=== PATIENT | male | born 1945 | race Caucasian/White ===

== ENCOUNTER 2018-05-28 06:00 | Day surgery (SDC) | payer OTHER ==
[~2018-05-28 06:00] MED LIST: ENALAPRIL MALEAT5 MG PO; GABAPENTIN300 MG PO; GLIPIZIDE XL2.5 MG PO; VASOTEC5 MG PO; ZOCOR20 MG PO
== END 2018-05-28 10:50 | disposition home or self-care (01) ==
LOC: CIR.AMB 06:00
DX: M75.121 Complete rotator cuff tear or rupture of right shoulder, not specified as traumatic (principal)